=== PATIENT | male | born 1955 | race Caucasian/White ===

== ENCOUNTER 2018-10-02 11:54 | Emergency (ER) | payer OTHER, SELFPAY ==
[2018-10-02 11:55] VITALS: BP 148/87; PULSE 97; RESP 16; TEMP 36.9; O2SAT 98; BMI 22.6
[2018-10-02 12:50] LABS: Anion Gap 3 (5-15); BUN 15 mg/dL (7-18); BUN/Creat Ratio 19.4 RATIO (10-20); Calcium,Total 8.7 mg/dL (8.5-10.1); Chloride 105 mmol/L (98-107); Creatinine, Serum 0.77 mg/dL (0.70-1.30); EST Glomerular Filtration Rate 108 mL/min (>60); Est Glom Filt Rate - Afr Amer 131 mL/min (>60); Estimated Creatinine Clearance 106.22 ml/min; Glucose 86 mg/dL (74-106); Potassium 3.8 mmol/L (3.5-5.1); Sodium Level 134 mmol/L (136-145)
[2018-10-02 12:52] LABS: Absolute Lymphocyte Count 0.95 X10^3/ul (0.83-4.51); Absolute Neutrophil Count 3.4 X10^3/uL (2.0-7.7); Basophil# 0.02 X10^3/uL; Basophil% 0.4 % (0-1); Eosinophil# 0.11 X10^3/uL; Eosinophils% 2.1 % (0-5); Hematocrit 42.2 % (40-54); Hemoglobin 14.2 g/dl (13.0-16.5); Lymphocyte # 0.95 X10^3/ul (4.0); Lymphocyte % 18.3 % (19-41); Mean Corp Hgb Conc 33.6 g/gl (32-36); Mean Corpuscular Hgb 31.8 pg (27.0-32.0); Mean Corpuscular Volume 94.6 fL (80-94); Mean Platelet Vol. 11.3 fl (6.2-12.0); Monocyte# 0.74 X10^3/uL; Monocyte% 14.3 % (0-10); Neutrophil # 3.36 X10^3/uL (2.7-7.7); Neutrophil % 64.9 % (47-70); Platelet Count 133 K/mm3 (150-450); RBC Distribution Width CV 12.5 % (11.6-14.6); RBC Distribution Width SD 42.5 fl (35.1-43.9); Red Blood Count 4.46 M/mm3 (4.6-6.2); White Blood Count 5.2 K/mm3 (4.4-11.0)
[2018-10-02 13:04] LABS: POSITIVE COUNT NO; POSITIVE DIFFERENTIAL NO; POSITIVE MORPHOLOGY NO
--- NOTE | 2018-10-02 13:42 | ED.VISSUMM ---
- ER Visit Summary Date of Service: 10/02/18 Chief Complaint: Left elbow pain and swelling History of Present Illness: The patient is a 63 M who was doing yard work outside last weekend. On Saturday he noted swelling to his left elbow and abrasion of the extensor portion of the elbow. He was seen by his PCP 2 days ago and started on Augmentin for an infection. He went to urgent care today with worsening symptoms and was sent to the emergency room. Patient had no fever or chills. He is able to flex and extend the arm without difficulty. Physical Examination: Vital signs unremarkable. Patient sitting upright in bed no acute distress. Left upper extremity examination was edema of the olecranon bursa. Left elbow has a scabbed abrasion. There is mild edema on the proximal extensor forearm. There is minimal erythema. He has full range of motion but difficulty with strong distal pulses. Test Results: CBC and chemistry studies are unremarkable. Emergency Department Course and Treatment: Patient is given a dose of IV clindamycin. 20-gauge needle was used to aspirate the olecranon bursa. There was no area of cellulitis at the area of needle entry. 5 cc of yellow bursal fluid were withdrawn. No purulent material. Pressure dressing is applied to help prevent the fluid from reaccumulating. Patient will be switched to clindamycin. Treatment Plan: [] Disposition: Discharge Impression: Olecranon bursitis This note was generated with [employer] dictation software. It may contain incorrect words, spelling, and punctuation that were not noted in review of the chart prior to signing ED Disposition - Plan for ED Patient: Disposition: Home or Assisted Living Instructions: ED Bursitis Elbow Olecranon Prescriptions: Clindamycin [Cleocin] 300 mg PO 4X/DAY #80 capsule Referrals: Gaetano Jose [Primary Care Provider] - 1 Week
[2018-10-02 14:20] VITALS: BP 151/78; PULSE 91; RESP 14; O2SAT 99
== END 2018-10-02 14:21 | disposition home or self-care (01) ==
PROVIDERS: Emergency Provider Emergency Medicine; Family Provider Family Medicine; PCP Family Medicine
DX: M70.22 Olecranon bursitis, left elbow (principal); S50.312A Abrasion of left elbow, initial encounter; X58.XXXA Exposure to other specified factors, initial encounter; Y93.9 Activity, unspecified; Y92.9 Unspecified place or not applicable; M19.90 Unspecified osteoarthritis, unspecified site
CPT/HCPCS: 20605; 20610; 80048; 85025; 96365; 96366; 99283; A4216

== ENCOUNTER → 2021-12-15 | Outpatient (CLI) | payer BC, SELFPAY ==
[2021-12-15 09:58] LABS: Absolute Lymphocyte Count 0.76 X10^3/uL (0.83-4.51); Absolute Neutrophil Count 3.9 X10^3/uL (2.0-7.7); Basophil# 0.04 X10^3/uL; Basophil% 0.7 % (0-1); Eosinophils% 3.5 % (0-5); Hematocrit 38.4 % (40-54); Hemoglobin 12.7 g/dL (13.0-16.5); Lymphocyte # 0.76 X10^3/ul (0.83-4.51); Lymphocyte % 13.3 % (19-41); Mean Corp Hgb Conc 33.1 g/dL (32-36); Mean Corpuscular Hgb 32.1 pg (27.0-32.0); Mean Platelet Vol. 10.4 fl (6.2-12.0); Monocyte# 0.84 X10^3/uL; Monocyte% 14.7 % (0-10); NRBC Flagged by Analyzer 0 % (0-5); Neutrophil # 3.86 X10^3/uL (2.7-7.7); Neutrophil % 67.5 % (47-70); Platelet Count 172 K/mm3 (150-450); RBC Distribution Width CV 12.5 % (11.6-14.6); RBC Distribution Width SD 44.6 fl (35.1-43.9); Red Blood Count 3.96 M/mm3 (4.6-6.2); White Blood Count 5.7 K/mm3 (4.4-11.0)
[2021-12-15 10:58] LABS: ALB/GLOB Ratio 0.9 RATIO (0.9-2.4); AST(SGOT) 21 U/L (15-37); Alanine Aminotransfer ALT/SGPT 36 U/L (16-61); Albumin, Serum 3.7 g/dL (3.2-5.0); Alkaline Phosphatase 78 U/L (45-117); Anion Gap 5 (5-15); BUN 12 mg/dL (7-18); BUN/Creat Ratio 13.7 RATIO (10-20); Calcium,Total 8.8 mg/dL (8.5-10.1); Chloride 101 mmol/L (98-107); Cholesterol 142 mg/dL (200); Creatinine, Serum 0.87 mg/dL (0.70-1.30); EST Glomerular Filtration Rate 93 mL/min (>60); Est Glom Filt Rate - Afr Amer 113 mL/min (>60); Globulin 4.1 g/dL (2.2-4.2); Glucose 107 mg/dL (74-106); High Density Lipoprotein 79 mg/dL; PSA,Total - Annual Screen 0.98 ng/mL (0.00-4.00); Potassium 4.5 mmol/L (3.5-5.1); Protein, Total 7.8 g/dL (6.4-8.2); Sodium Level 134 mmol/L (136-145); Thyroid Stim Hormone (TSH) 1.15 uIU/mL (0.358-3.74); Triglycerides 27 mg/dL; Very Low Density Lipoprotein 5 mg/dL (5-40)
== END | disposition home or self-care (01) ==
LOC: LAB 09:36
PROVIDERS: PCP Family Medicine; Visit Provider Internal Medicine
DX: I10 Essential (primary) hypertension (principal); E78.00 Pure hypercholesterolemia, unspecified; E55.9 Vitamin D deficiency, unspecified; Z12.5 Encounter for screening for malignant neoplasm of prostate
CPT/HCPCS: 36415; 80053; 80061; 82306; 84153; 84443; 85025; G0103

== ENCOUNTER → 2021-12-22 | Outpatient (CLI) | payer MEDICARE, SELFPAY ==
[2021-12-22 09:57] LABS: Iron 73 ug/dL (65-175); Iron Binding Capacity,Total 297 ug/dL (250-450); PERCENT IRON SATURATION 24.6 % (15.0-55.0)
[2021-12-22 10:17] LABS: Vitamin B12 319 pg/mL (211-911)
== END | disposition home or self-care (01) ==
LOC: LAB 08:45
PROVIDERS: PCP Internal Medicine; Visit Provider Internal Medicine
DX: D64.9 Anemia, unspecified (principal)
CPT/HCPCS: 36415; 82607; 82746; 83540; 83550

== ENCOUNTER → 2022-01-05 | Outpatient (CLI) | payer MEDICARE, SELFPAY | END | disposition home or self-care (01) | LOC: LABSPEC 08:30 | PROVIDERS: PCP Internal Medicine; Referring Provider Internal Medicine; Visit Provider Internal Medicine | DX: D64.9 Anemia, unspecified (principal) | CPT/HCPCS: 82274 ==

== ENCOUNTER 2022-02-06 05:48 | Day surgery (SDC) | payer MEDICARE, SELFPAY ==
[2022-02-06] VITALS (18 sets, daily range): BP systolic 120–194; BP diastolic 52–104; PULSE 42–58; RESP 5–16; TEMP 36–36.9; O2SAT 91–100; BMI 23.9
--- NOTE | 2022-02-06 06:07 | HP.PCM_ITS ---
History and Physical Date of Admission: 02/06/22 Intake Visit Reasons:?SEBACEOUS CYST LEFT UPPER BACK/CSCOPE Chief Complaint: colonoscopy consult [facility] Director Required: No Is patient in pain?: No Allergies No Known Allergies Allergy (Verified 12/22/21 07:58) Medications apixaban 5 mg tablet 5 mg PO BID 12/06/21 [History Confirmed 12/22/21] atorvastatin 40 mg tablet 40 mg PO DAILY 12/06/21 [History Confirmed 12/22/21] clopidogrel 75 mg tablet 75 mg PO DAILY 12/06/21 [History Confirmed 12/22/21] losartan 25 mg tablet 25 mg PO DAILY 12/06/21 [History Confirmed 12/22/21] metoprolol tartrate 100 mg tablet (Lopressor) 100 mg PO BID 12/06/21 [History Confirmed 12/22/21] PFSH Medical History? Arthritis Heart murmur High blood pressure High cholesterol Surgical History? H/O heart artery stent History of hip replacement History of surgery on arm Family History? Mother Heart diseaseFather ArthritisSister Arthritis Social History? Smoking Status:? Never smoker alcohol intake:? current details:? few beers daily what type of physical activity do you participate in:? walking frequency:? daily HPI HPI HPI: KIMANI MOCTEZUMA, is a 66 M who presents to the office today for surgical consultation regarding a left upper back sebaceous cyst.? The patient is referred by Dr. Fiona Lemon and a written copy my surgical consult recommendations will return to him.? By report there is intermittently gets inflamed.? The patient also has not had a screening colonoscopy. He states that he had some hemorrhoid problem for the first time just a week or so ago.? It was after a bout of diarrhea change in bowel habit.? No bright red blood per rectum or melena.? No abdominal pain. He is not aware of any family history of colon polyps or colon cancer He states he had a stress test last week and did well with that.? No history of DVT. He plans to go out to [facility] to [facility].? He will be gone later the month of December. ROS General General: No weight change, appetite, fatigue, colon cancer, breast cancer or weakness HEENT HEENT: No difficulty swallowing, eye injury, eye surgery, swollen glands or hoarseness Endo Endocrine: No thyroid disease, diabetes mellitus, thyroid cancer, Hair loss, heat intolerance or cold intolerance Skin Skin: No rash or changing moles Breast Breast: No left breast lump, right breast lump, nipple discharge, breast pain, a bnormal mammogram, abnormal US or breast enlargement Musc Musculoskeletal: Yes arthritis; No back problems, rheumatoid arthritis, gout or joint pain Cardio Cardiovascular: Yes murmur, atrial fibrillation, high blood pressure, heart attack and heart stent; No pacemaker, heart disease, palpitations, shortness of breat with exertion or chest pain Psych Psychiatric: No depression, anxiety or hearing voices Resp Respiratory: No shortness of breath, Yes sleep apnea, No cough, No COPD, No asthma, No emphysema and No wheezing Gastro Gastrointestinal: No abdominal pain, No nausea or vomiting, Yes diarrhea, Yes constipation, No blood in stool, No acid reflux, Yes hemorrhoids, No ulcers, No gallbladder problem and No black,tarry stools Stepan Hematologic: Yes blood thinners, No blood disorders, No bleeding, No anemia and No blood clots Neuro Neurologic: No system reviewed and no additional complaints, except as documented, No as per HPI, No abnormal gait, No abnormal hearing, No abnormal movements, No abnormal speech, No behavioral changes, No burning sensations, No confusion, No convulsions, No disequilibrium, No dizziness, No localized weakness, No frequent falls, No headache(s), No lack of coordination, No loss of vision, No memory loss, No numbness, No other visual disturbances, No radicular pain, No restless legs, No sensory deficit, No syncope, No tingling, No tremor(s), No weakness and No other Exam Const General: cooperative, healthy appearing, comfortable and no acute distress [facility] Head: normal to inspection Eyes General: appearance normal, both eyes and all related structures Neck Neck: normal visual inspection Chest Chest palpation & inspection: normal inspection of the chest Resp Effort & Inspection: normal respiratory effort Auscultation: clear to auscultation bilaterally Cardio Rate: regular rate Rhythm: regular rhythm GI Palpation: soft and no hepatosplenomegaly Auscultation: normal bowel sounds Musc Cervical Spine: normal cervical lordosis Skin General: no rashes or lesions noted Other: Left upper posterior shoulder 1.5 cm diameter subdermal nodule Extrem General: no calf tenderness Psych Appearance: grossly normal Assessment and Plan Assessment and Plan (1) Sebaceous cyst: ?Status:?Acute (2) Screening for intestinal cancer: ?Status:?Acute Plan Left posterior shoulder sebaceous cyst.? Currently noninflamed but history of inflammation and drainage.? I recommend in office complete excisional removal.? He is aware of technique, benefit, risk, alternatives.? We would want to schedule that for when he will not be leaving on his vacation. Recommend a screening colonoscopy with possible biopsy or polypectomy as indicated.? He has never had a previous screening exam.? Recent temporary bout of diarrhea but that seems to have resolved.? No acute symptoms.? He is aware of the technique, benefit, risk and alternatives.? We will also schedule procedure at his discretion. Appreciate the opportunity assisting with the surgical care Copy: Dr. Fiona Rubio M.D., F.A.C.S I have re-examined the patient. There are no clinical changes since date of exam. Teodoro Rubio M.D., F.A.C.S.
[2022-02-06] MEDS: Lactated Ringers 1,000 ML 15 ML IV ×2 (06:25→07:53)
[2022-02-06] MEDS: Midazolam 5 MG/ML Syringe (07:10)
[2022-02-06] MEDS: DiphenhydrAMINE 50 MG/ML Syringe (07:17)
--- NOTE | 2022-02-06 07:40 | OP.COLON_ITS ---
Patient Name: Prasanna Palm Procedure Date: 02/06/2022 7:05 AM Date of : 1955 Age: 66 Procedure: Colonoscopy Indications: Screening for colorectal malignant neoplasm Providers: Teodoro Rubio MD Medicines: Midazolam 5 mg IV, Meperidine 100 mg IV, Diphenhydramine 25 mg IV Patient Profile: Last Colonoscopy: none. The patient's first colonoscopy is today. Complications: No immediate complications. Procedure: Pre-Anesthesia Assessment: - Prior to the procedure, a History and Physical was performed, and patient medications and allergies were reviewed. The patient's tolerance of previous anesthesia was also reviewed. The risks and benefits of the procedure and the sedation options and risks were discussed with the patient. All questions were answered, and informed consent was obtained. Prior Anticoagulants: The patient has taken no previous anticoagulant or antiplatelet agents. ASA Grade Assessment: II - A patient with mild systemic disease. After reviewing the risks and benefits, the patient was deemed in satisfactory condition to undergo the procedure. After I obtained informed consent, the scope was passed under direct vision. Throughout the procedure, the patient's blood pressure, pulse, and oxygen saturations were monitored continuously. The adult colonoscope was introduced through the anus and advanced to the cecum, identified by appendiceal orifice and ileocecal valve. The colonoscopy was technically difficult and complex due to a redundant colon. Successful completion of the procedure was aided by increasing the dose of sedation medication. The patient tolerated the procedure well. The quality of the bowel preparation was good. The ileocecal valve and the appendiceal orifice were photographed. Moderate Sedation: Moderate (conscious) sedation was personally administered by the endoscopist. The following parameters were monitored: oxygen saturation, heart rate, blood pressure, and response to care. Total physician intraservice time was 18 minutes. Scope In: 7:12:58 AM Scope Withdrawal Time 0 hours 7 minutes 16 seconds Scope Out: 7:35:36 AM Total Procedure Duration Time 0 hours 22 minutes 38 seconds Findings: The digital rectal exam findings include non-thrombosed internal hemorrhoids and internal hemorrhoids that prolapse with straining, but spontaneously regress to the resting position (Grade II). Pertinent negatives include normal prostate (size, shape, and consistency). A few diverticula were found in the entire colon. The left colon and right colon were moderately tortuous. Advancing the scope required changing the patient to a supine position and using manual pressure. The exam was otherwise without abnormality. Impression: - Non-thrombosed internal hemorrhoids and internal hemorrhoids that prolapse with straining, but spontaneously regress to the resting position (Grade II) found on digital rectal exam. - Diverticulosis in the entire examined colon. - Tortuous colon. - The examination was otherwise normal. - No specimens collected. Recommendation: - Discharge patient to home. - Resume previous diet. - Continue present medications. - Repeat colonoscopy in 10 years for screening purposes. Procedure Code(s): --- Professional --- 46274, Colonoscopy, flexible; diagnostic, including collection of specimen(s) by brushing or washing, when performed (separate procedure) 68300, 59, Moderate sedation services provided by the same physician or other qualified health daycare teacher performing the diagnostic or therapeutic service that the sedation supports, requiring the presence of an independent trained observer to assist in the monitoring of the patient's level of consciousness and physiological status; initial 15 minutes of intraservice time, patient age 5 years or older Diagnosis Code(s): --- Professional --- Z12.11, Encounter for screening for malignant neoplasm of colon K64.1, Second degree hemorrhoids K57.30, Diverticulosis of large intestine without perforation or abscess without bleeding Q43.8, Other specified congenital malformations of intestine CPT copyright 2017 [employer]. All rights reserved. The codes documented in this report are preliminary and upon set up mechanic crown assembly machine review may be revised to meet current compliance requirements. Teodoro Rubio MD 02/06/2022 7:40:14 AM This report has been signed electronically. Number of Addenda: 0 Note Initiated On: 02/06/2022 7:05 AM
--- NOTE | 2022-02-06 07:41 | OP.CCLET_ITS ---
02/06/2022 Fiona Lemon [facility] [address] [place] [address] Re : Colonoscopy procedure for Prasanna Palm Dear Dr. Lemon This procedure was performed on Sunday, February 06, 2022. My impressions and recommendations are as follows: Impressions : - Non-thrombosed internal hemorrhoids and internal hemorrhoids that prolapse with straining, but spontaneously regress to the resting position (Grade II) found on digital rectal exam. - Diverticulosis in the entire examined colon. - Tortuous colon. - The examination was otherwise normal. - No specimens collected. Recommendations : - Discharge patient to home. - Resume previous diet. - Continue present medications. - Repeat colonoscopy in 10 years for screening purposes. My findings are described in the full procedure note, which is enclosed. If I can be of further assistance, please feel free to contact me at Doctor phone number(s): Work: . Sincerely, Teodoro Rubio MD 02/06/2022 7:40:14 AM This report has been signed electronically.
== END 2022-02-06 09:17 | disposition home or self-care (01) ==
LOC: EN 05:50 → AC 05:52
PROVIDERS: PCP Internal Medicine; Referring Provider Internal Medicine; Visit Provider Surgery
PROC: 0DJD8ZZ Inspection of Lower Intestinal Tract, Via Natural or Artificial Opening Endoscopic (ICD-10-PCS; CPT 45378; principal; 2022-02-06 06:55)
DX: Z12.11 Encounter for screening for malignant neoplasm of colon (principal); E78.00 Pure hypercholesterolemia, unspecified; Z79.899 Other long term (current) drug therapy; K64.1 Second degree hemorrhoids; K57.30 Diverticulosis of large intestine without perforation or abscess without bleeding; Q43.8 Other specified congenital malformations of intestine
CPT/HCPCS: G0121; 99152; 99153; J7120

== ENCOUNTER → 2023-06-18 | Outpatient (CLI) | payer MEDICARE, SELFPAY ==
[2023-06-18 10:08] LABS: Absolute Lymphocyte Count 1.07 X10^3/uL (0.83-4.51); Absolute Neutrophil Count 2.3 X10^3/uL (2.0-7.7); Basophil# 0.04 X10^3/uL; Basophil% 0.9 % (0-1); Eosinophil# 0.19 X10^3/uL; Eosinophils% 4.4 % (0-5); Hematocrit 38.6 % (40-54); Hemoglobin 12.7 g/dL (13.0-16.5); Lymphocyte # 1.07 X10^3/ul (0.83-4.51); Lymphocyte % 24.6 % (19-41); Mean Corp Hgb Conc 32.9 g/dL (32-36); Mean Corpuscular Hgb 31.4 pg (27.0-32.0); Mean Corpuscular Volume 95.3 fL (80-94); Mean Platelet Vol. 10.8 fl (6.2-12.0); Monocyte# 0.79 X10^3/uL; Monocyte% 18.2 % (0-10); NRBC Flagged by Analyzer 0 % (0-5); Neutrophil # 2.25 X10^3/uL (2.7-7.7); Neutrophil % 51.7 % (47-70); Platelet Count 184 K/mm3 (150-450); RBC Distribution Width CV 12.5 % (11.6-14.6); RBC Distribution Width SD 43.8 fl (35.1-43.9); Red Blood Count 4.05 M/mm3 (4.6-6.2); White Blood Count 4.4 K/mm3 (4.4-11.0)
[2023-06-18 11:20] LABS: AST(SGOT) 34 U/L (15-37); Alanine Aminotransfer ALT/SGPT 37 U/L (16-61); Albumin, Serum 3.9 g/dL (3.2-5.0); Alkaline Phosphatase 84 U/L (45-117); Anion Gap 3 (5-15); BUN 12 mg/dL (7-18); BUN/Creat Ratio 13.5 RATIO (10-20); Bilirubin, Direct 0.38 mg/dL (0.00-0.30); Calcium,Total 9.4 mg/dL (8.5-10.1); Chloride 102 mmol/L (98-107); Cholesterol 128 mg/dL (200); Creatinine, Serum 0.89 mg/dL (0.70-1.30); EST Glomerular Filtration Rate 91 mL/min (>60); Est Glom Filt Rate - Afr Amer 110 mL/min (>60); Globulin 4.2 g/dL (2.2-4.2); Glucose 105 mg/dL (74-106); High Density Lipoprotein 84 mg/dL; Potassium 4.2 mmol/L (3.5-5.1); Protein, Total 8.1 g/dL (6.4-8.2); Sodium Level 130 mmol/L (136-145); Thyroid Stim Hormone (TSH) 1.68 uIU/mL (0.358-3.74); Triglycerides 31 mg/dL; Very Low Density Lipoprotein 6 mg/dL (5-40)
== END | disposition home or self-care (01) ==
LOC: LAB 09:35
PROVIDERS: PCP Internal Medicine; Referring Provider Nurse Practitioner Gerontology; Visit Provider Nurse Practitioner Gerontology
DX: R53.83 Other fatigue (principal); E78.5 Hyperlipidemia, unspecified; E55.9 Vitamin D deficiency, unspecified
CPT/HCPCS: 36415; 80048; 80061; 80076; 82306; 84443; 85025

== ENCOUNTER → 2023-07-22 | Outpatient (CLI) | payer MEDICARE, SELFPAY ==
--- NOTE | 2023-07-22 10:46 | ECHOD_ITS ---
Reason For Study: Aortic Insufficiency, CAD Procedure This was a 2D Doppler, Color Flow transthoracic echocardiogram. Exam performed in department. Left Ventricle Normal LV size. Mild concentric left ventricular hypertrophy. The estimated ejection fraction is 60 %. Stage 2 diastolic dysfunction. No regional wall motion abnormalities noted. Right Ventricle Normal RV size. Normal systolic function. Atria Normal left atrium. Normal right atrium. Mitral Valve Bileaflet diffuse mitral valve thickening. Mild (1+) eccentric mitral valve insufficiency. Tricuspid Valve Normal tricuspid valve. Mild tricuspid valve insufficiency. Pulmonary artery systolic pressure is 30 mmHg. Aortic Valve Normal aortic valve. Trisinus/trileaflet aortic valve. Mild (1+) aortic valve insufficiency. Pulmonic Valve Normal pulmonic valve. Great Vessels Normal aortic root. The pulmonary artery is normal size. Normal inferior vena cava. Pericardium/Pleural No pericardial effusion. MMode/2D Measurements & Calculations LVIDd: 4.7 cm IVSd: 1.2 cm Ao root diam: 3.1 cm LVIDs: 3.3 cm LVPWd: 1.2 cm RVDd: 3.5 cm FS: 28.9 % LAV(MOD-bp): 56.3 ml LVAd ap4: 30.0 cm2 LVAd ap2: 34.0 cm2 LAV(MOD-bp) Indexed: 27.7 ml/m2 LVLd ap4: 8.2 cm LVLd ap2: 8.9 cm LAV(MOD-sp2): 48.2 ml EDV(MOD-sp4): 89.3 ml EDV(MOD-sp2): 110.1 ml LAV(MOD-sp4): 57.8 ml EDV(sp4-el): 92.7 ml EDV(sp2-el): 110.2 ml LVAs ap4: 16.0 cm2 LVAs ap2: 18.8 cm2 LVLs ap4: 6.8 cm LVLs ap2: 7.5 cm ESV(MOD-sp4): 32.1 ml ESV(MOD-sp2): 39.9 ml ESV(sp4-el): 31.9 ml ESV(sp2-el): 40.0 ml EF(MOD-sp4): 64.1 % EF(MOD-sp2): 63.7 % EF(sp4-el): 65.6 % SV(MOD-sp4): 57.3 ml SV(MOD-sp2): 70.2 ml SV(sp4-el): 60.9 ml LA dimension(2D): 4.0 cm LA A4 area: 18.8 cm2 RA A4 area: 13.9 cm2 TAPSE: 2.1 cm Time Measurements MV dec time: 0.20 sec Doppler Measurements & Calculations MV E max manuelito: 77.9 cm/sec Lat Peak E' Manuelito: 14.3 cm/sec Med Peak E' Manuelito: 6.5 cm/sec MV A max manuelito: 54.6 cm/sec E/E' lat: 5.4 E/E' med: 12.0 MV E/A: 1.4 MV dec slope: 392.1 cm/sec2 Ao V2 max: 136.4 cm/sec LV V1 max: 94.7 cm/sec Ao max P.4 mmHg LV V1 max P.6 mmHg Ao V2 mean: 93.1 cm/sec LV V1 mean P.8 mmHg Ao mean P.0 mmHg LV V1 mean: 61.8 cm/sec Ao V2 VTI: 35.1 cm LV V1 VTI: 22.8 cm AV (velocity ratio): 0.65 PA V2 max: 94.0 cm/sec TR max manuelito: 259.0 cm/sec TR max P.8 mmHg ECHO/Echo Complete Interpretation Summary Normal LV size. Mild concentric left ventricular hypertrophy. The estimated ejection fraction is 60 %. Stage 2 diastolic dysfunction. Mild (1+) eccentric mitral valve insufficiency. Mild (1+) aortic valve insufficiency. Ordering Physician: Missy Dexter Referring Physician: Fiona Lemon M.D. Performed By: Kristi Bee RDCS
[2023-07-22 14:49] LABS: Anion Gap 5 (5-15); BUN 12 mg/dL (7-18); BUN/Creat Ratio 12.6 RATIO (10-20); Calcium,Total 8.5 mg/dL (8.5-10.1); Chloride 105 mmol/L (98-107); Creatinine, Serum 0.96 mg/dL (0.70-1.30); EST Glomerular Filtration Rate 84 mL/min (>60); Est Glom Filt Rate - Afr Amer 101 mL/min (>60); Glucose 104 mg/dL (74-106); Potassium 4.5 mmol/L (3.5-5.1); Sodium Level 136 mmol/L (136-145)
== END | disposition home or self-care (01) ==
PROVIDERS: PCP Internal Medicine; Referring Provider Nurse Practitioner Gerontology; Visit Provider Nurse Practitioner Gerontology
DX: I35.1 Nonrheumatic aortic (valve) insufficiency (principal); I10 Essential (primary) hypertension; Z79.899 Other long term (current) drug therapy
CPT/HCPCS: 36415; 80048; 93306

== ENCOUNTER 2023-10-17 15:05 | Observation (INO) | payer MEDICARE, SELFPAY ==
--- NOTE | 2023-10-02 07:35 | EKG12_ITS ---
Test Reason : PREOP Blood Pressure : / mmHG Vent. Rate : 061 BPM Atrial Rate : 061 BPM P-R Int : 160 ms QRS Dur : 092 ms QT Int : 384 ms P-R-T Axes : 033 066 055 degrees QTc Int : 386 ms Normal sinus rhythm Normal ECG Confirmed by Kris Lowery ([id number]), film and video editor GEOVANNI DAVIS ([id number]) on 10/02/2023 12:52:58 PM Referred By: Ta He Confirmed By:Kris Lowery
[2023-10-02 08:36] LABS: Absolute Lymphocyte Count 1.21 X10^3/uL (0.83-4.51); Basophil# 0.05 X10^3/uL; Basophil% 1.1 % (0-1); Eosinophils% 9.2 % (0-5); Hematocrit 39.9 % (40-54); Hemoglobin 13.2 g/dL (13.0-16.5); Lymphocyte # 1.21 X10^3/ul (0.83-4.51); Lymphocyte % 27.7 % (19-41); Mean Corp Hgb Conc 33.1 g/dL (32-36); Mean Corpuscular Volume 96.6 fL (80-94); Mean Platelet Vol. 10.9 fl (6.2-12.0); Monocyte# 0.66 X10^3/uL; Monocyte% 15.1 % (0-10); NRBC Flagged by Analyzer 0 % (0-5); Neutrophil # 2.03 X10^3/uL (2.7-7.7); Neutrophil % 46.4 % (47-70); Platelet Count 210 K/mm3 (150-450); RBC Distribution Width CV 12.8 % (11.6-14.6); RBC Distribution Width SD 45.7 fl (35.1-43.9); Red Blood Count 4.13 M/mm3 (4.6-6.2); White Blood Count 4.4 K/mm3 (4.4-11.0)
[2023-10-02 08:57] LABS: Magnesium 2.1 mg/dL (1.6-2.6)
[2023-10-02 09:12] LABS: Albumin, Serum 3.8 g/dL (3.2-5.0); Anion Gap 6 (5-15); BUN 15 mg/dL (7-18); Calcium,Total 9.4 mg/dL (8.5-10.1); Chloride 103 mmol/L (98-107); EST Glomerular Filtration Rate 79 mL/min (>60); Est Glom Filt Rate - Afr Amer 96 mL/min (>60); Glucose 121 mg/dL (74-106); Potassium 4.8 mmol/L (3.5-5.1); Sodium Level 133 mmol/L (136-145)
[2023-10-17] VITALS (33 sets, daily range): BP systolic 106–158; BP diastolic 52–86; PULSE 49–86; RESP 6–18; TEMP 36.1–36.7; O2SAT 95–100; BMI 22.8
--- NOTE | 2023-10-17 | HIP_PTH ---
PATIENT: KIMANI MOCTEZUMA LOC: MS3 U#:[id number] AGE/SX: 68/M ROOM: [facility] [place]17/[address]: Dr. Ta He DO : 1955 BED: 1 DIS: 10/18/2023 SPEC #: [id number] RECD: 10/17/23 10:02 STATUS: CONTRERAS RAMANDEEP #: [id number] COLLIN: 10/17/23 00:[address]: Ta He DEPT: SURGICAL PATHOLOGY RECD BY: Lauren Traylor ENTERED: 10/17/23 13:22 SP TYPE: TOTAL HIP OTHR DR: Dr. Fiona Lemon MD Tissues: Hip, NOS Procedures: Decalcification bone/plaque Surgery Specimen Level IV HEADER OPERATION: ERAS, total hip replacement PRE-OP DIAGNOSIS: Grade 4 primary osteoarthritis, right hip TISSUE SUBMITTED: Bone and soft tissue right hip MICROSCOPIC DIAGNOSIS Bone and tissue of right hip, total hip resection: Severe degenerative joint disease. Mild synovial hyperplasia. AM: 10/23/2023 MICROSCOPIC DESCRIPTION Slides are reviewed. GROSS DESCRIPTION Received is one container labeled with the patient's name and designated bone and soft tissue right hip. The specimen consists of a arriaza femoral head (with portion of femoral neck). The femoral head measures 5.0 x 5.0 x 5.0 cm (and the femoral neck measures 0.5 to 2.5 cm in length.) The articular surface displays prominent osteophyte formation, eburnation and bone erosion. Also present in the specimen container are multiple irregular fragments of bone reamings and pink-yellow soft tissue measuring in aggregate 8.0 x 9.0 x 1.5 cm. A loose body is also present in the container measuring 1.7 x 1.0 x 0.7cm. Access Services Representative sections are submitted in two cassettes as follows: 1 - soft tissue, 2 - bone after decalcification. JERRY/ 10/17/2023 TC:5 CPT: 12503, 50929
[2023-10-17] MEDS: Magnesium 1 GM over 15 mins IV (06:27)
[2023-10-17] MEDS: Lactated Ringers 1,000 ML 15 ML IV (06:27)
[2023-10-17 06:32] LABS: Bedside Glucose 99 mg/dL (74-106)
[2023-10-17] MEDS: Gabapentin 600 MG Tablet PO (06:40)
[2023-10-17] MEDS: Celecoxib 200 MG Capsule 400 MG PO (06:41)
[2023-10-17] MEDS: Acetaminophen 500 MG Tablet 1000 MG PO ×2 (06:41→20:14)
[2023-10-17] MEDS: Cefazolin 2 GM in 0.9% Normal Saline (100mL Bag) 100 ML IV (07:25)
[2023-10-17] MEDS: dexAMETHasone 10 MG/ML Vial IV (07:40)
[2023-10-17] MEDS: JPS (Morphine 10mg/ml) OPERA.SITE (08:23)
[2023-10-17] MEDS: TRANEXAMIC ACID 2,000 MG, 0.9% Normal Saline (100mL Bag) 100 ML OPERA.SITE (09:05)
--- NOTE | 2023-10-17 09:13 | PRE.ANES_ITS ---
ASA Classification* ASA Classification ASA Classification: 3 Assessment & Plan Anesthesia* Anesthesia Assessment Anesthesia Assessment: Discussed sedation and/or anesthesia options, risks, benefits, and alternatives with patient/parents/legal guardian. Questions invited. The patient/parents/legal guardian/POA seems to understand and agrees to proceed with anesthesia plan. Reviewed the physical assessment, medical history, allergy history and patient home medications list prior to surgery/procedure/anesthetic and documented any changes. Performed airway and anesthesia risk assessments. 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 When Was Last Pacemaker Check QUESTION #4 FULL TEXT: You/Your Family Experience fever (hyperthermia) with Anesthesia Last Oral Intake Last Oral intake: NPO since 19:30 Meds taken in AM with sips of Yes water? Meds patient instructed to losartan, metoprolol, amlodipine take am of surgery Any additional information?: Yes PONV PONV - pipe out worker: PONV - pipe out worker Female No 09/23/23 08:32 HX of Motion Sickness No 09/23/23 08:32 HX of N/V After Surgery No 09/23/23 08:32 Non-Smoker Yes 09/23/23 08:32 Duration of Surgery greater Yes 09/23/23 08:32 than 60 minutes Number of Risk Factors 2 09/23/23 08:32 PONV Score Moderate Risk 09/23/23 08:32 Height & Weight Height & Weight: Anesthesia: Height & Weight Height 1.83 m 10/17/23 06:30 Weight: 76.6 kg 10/17/23 06:30 Body Mass Index (BMI) 22.8 10/17/23 06:30 Respiratory Assessment Respiratory Assessment - pipe out worker: Respiratory Tract Infection Hx - pipe out worker Hx Respiratory Tract Infection No 09/23/23 08:32 STOP Sleep Apnea STOP Sleep Apnea - pipe out worker: STOP Sleep Apnea - pipe out worker Hx Hypertension Yes: CONTROLLED WITH MED 09/23/23 08:32 Hx Sleep Apnea No 09/23/23 08:32 CPAP BIPAP Do you snore loudly (louder Yes 09/23/23 08:32 than talking or can be heard Do you often feel tired/ No 09/23/23 08:32 fatigued/ sleepy during daytime? Has anyone observed you stop No 09/23/23 08:32 breathing during sleep? STOP Results Positive 09/23/23 08:32 QUESTION #5 FULL TEXT : Do you snore loudly (louder than talking or can be heard through closed doors)? 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 Specify any problems Hx of Preganancy in last 3 N/A 09/23/23 08:32 Months Nurse Filling Out Transfusion NBUCHER 09/23/23 08:32 & Questions: Date: 09/23/23 09/23/23 08:32 Time: 08:34 09/23/23 08:32 Patient unable to answer at this time (ie. confused, unrespo /Reproduction History /Reproductive History - pipe out worker: /Reproductive Hx- pipe out worker Hx Now No 09/23/23 08:32 Gestational Age (in weeks): EDC: Hx Hx Para Hx Section SAB No 09/23/23 08:32 Active Medications Active Medications: Current Medications Generic Name Dose Route Start Last Admin Trade Name Freq PRN Reason Stop Dose Admin Acetaminophen 1,000 mg 10/17/23 10:20 10/17/23 06:41 Acetaminophen 500 Mg Tablet PO 10/17/23 10:21 1,000 mg X1 ONE Administration Celecoxib 400 mg 10/17/23 10:20 10/17/23 06:41 Celecoxib 200 Mg Capsule PO 10/17/23 10:21 400 mg X1 ONE Administration Tranexamic Acid 2,000 mg/ 0 mg 10/17/23 10:20 10/17/23 09:05 Sodium Chloride 100 ml OPERA.SITE 10/17/23 10:21 100 ml X1 ONE Administration Sodium Chloride 77.9 ml/ 0 ml 10/17/23 10:20 10/17/23 08:23 Ropivacaine 200 mg/ OPERA.SITE 10/17/23 10:21 100 injectable Epinephrine HCl 0.6 mg/ X1 ONE Administration Ketorolac Tromethamine 30 mg/ Morphine Sulfate 5 mg Dexamethasone Sodium Phosphate 10 mg 10/17/23 10:20 10/17/23 07:40 Dexamethasone 10 Mg/Ml Vial IV 10/17/23 10:21 10 mg X1 ONE Administration Gabapentin 600 mg 10/17/23 10:20 10/17/23 06:40 Gabapentin 600 Mg Tablet PO 10/17/23 10:21 600 mg X1 ONE Administration Cefazolin Sodium 2 gm/ Sodium 110 mls @ 150 mls/hr 10/17/23 10:20 10/17/23 07:56 Chloride IV 10/17/23 11:03 Infused PREOP ONE Infusion Magnesium Sulfate 1 gm/ 102 mls @ 408 mls/hr 10/17/23 10:20 10/17/23 06:27 Dextrose IV 10/17/23 10:34 408 mls/hr X1 ONE Administration Lactated Ringer's 1,000 mls @ 15 mls/hr 10/17/23 06:00 10/17/23 06:27 IV 15 mls/hr .Q48H FERNANDO Administration Insulin Human Lispro 1 - 6 unit 10/17/23 10:20 Insulin Lispro 100 Unit/Ml Insuln.Pen SC Q4H PRN PRN BG>/= 180, SEE PROTOCOL Protocol Anesthesia Focused Assessment* Temperature: 97.9 F Pulse Rate: 86 Blood Pressure: 130/86 Respiratory Rate: 16 Pulse Ox: 100 Airway Assessment Mouth opens (cm): 3 Mallampati Score: I Focused Labs Anesthesia Preop lab: CBC WBC 7.5 K/mm3 (4.4-11.0) 10/18/23 06:09 RBC 2.69 M/mm3 (4.6-6.2) L 10/18/23 06:09 Hgb 8.6 g/dL (13.0-16.5) L 10/18/23 06:09 Hct 26.4 % (40-54) L 10/18/23 06:09 Plt Count 161 K/mm3 (150-450) 10/18/23 06:09 CHEMISTRY Potassium 4.8 mmol/L (3.5-5.1) 10/02/23 07:38 Sodium 133 mmol/L (136-145) L 10/02/23 07:38 Magnesium 2.1 mg/dL (1.6-2.6) 10/02/23 07:38 BUN 15 mg/dL (7-18) 10/02/23 07:38 Creatinine 1.00 mg/dL (0.70-1.30) 10/02/23 07:38 Glucose 121 mg/dL (74-106) H 10/02/23 07:38 TSH 1.68 uIU/mL (0.358-3.74) 06/18/23 09:42 COAG Review of Systems (Anesthesia) ROS Narrative System reviewed and no additional complaints, except as documented. [facility] Medical History (Updated 09/23/23 @ 08:40 by Lyudmila Zhou) High cholesterol Back pain Heartburn Non-smoker History of echocardiogram History of stress test Cardiology follow-up encounter History of atrial fibrillation Atrial fibrillation with RVR Paroxysmal atrial fibrillation Essential hypertension Hyperlipidemia Atherosclerotic heart disease of [place] coronary artery with unstable angina pectoris Heart murmur Arthritis Home Medications ?Medication ?Instructions ?Recorded ?Last Taken ?Type aspirin 81 mg tablet,delayed 81 mg PO DAILY 08/23/22 10/16/23 History release losartan 50 mg tablet 50 mg PO DAILY This is a dose 07/11/23 10/17/23 Rx increase #90 tabs amlodipine 5 mg tablet 5 mg PO DAILY #30 tabs 07/22/23 10/17/23 Rx apixaban 5 mg tablet 5 mg PO BID #60 tabs 07/30/23 10/16/23 Rx metoprolol tartrate 100 mg tablet 100 mg PO BID #180 tabs 09/06/23 10/17/23 Rx (Lopressor) acetaminophen 500 mg tablet 1,000 mg (2 x 500 mg) PO Q8 30 10/18/23 Unknown Rx days #180 tabs doxycycline hyclate 100 mg tablet 100 mg PO BID 7 days #14 tabs 10/18/23 Unknown Rx Allergy/AdvReac Type Severity Reaction Status Date / Time No Known Allergies Allergy Verified 10/17/23 06:27 Family History Mother Heart disease Father Arthritis Sister Arthritis Surgical History (Updated 10/18/23 @ 06:[address] Ta He, DO) History of cardiac catheterization History of back surgery History of appendectomy History of coronary artery stent placement (06/01/21) History of surgery on arm History of hip replacement Social History Smoking Status: Never smoker alcohol intake: current details: few beers daily substance use type: does not use caffeine: Yes Type: tea Number of servings: 1 what type of physical activity do you participate in: walking frequency: daily
--- NOTE | 2023-10-17 09:28 | RAD_ITS ---
STUDY: X-RAY - PELVIS AND RIGHT HIP REASON FOR EXAM: Male, 68 years old. Post op R JEN -- in PACU TECHNIQUE: 1 views of the pelvis and hip. COMPARISON: Comparison is made with prior study done earlier today. FINDINGS: Stable cephalic subluxation of the prosthetic right hip joint. RAD/Hip Min 2 Views (Portable) IMPRESSION: Stable cephalic subluxation of the prosthetic right hip joint. Electronically Signed: David Franklin MD at 12:35 EDT ,
--- NOTE | 2023-10-17 09:35 | OP.PCM_ITS ---
Report of Operation Description of Surgical Findings:: Preoperative diagnosis: Right hip primary osteoarthritis Postoperative diagnosis: Right hip primary osteoarthritis Procedure: Right total hip arthroplasty Surgeon: Ta He DO Ship Wirer: Fahad Prasad PA-C Anesthesia: General endotracheal Anesthesiologist: Dr. Cabral Complications: None apparent Drains: None Estimated blood loss: 200 cc Urinary output: None recorded IV fluids: 1300 cc crystalloid Specimens: Right femoral head Surgical implants: Gomez Accolade two 132 degree neck angle hip stem size #7, Biolox ceramic V40 femoral head 36 mm outer diameter with +0 mm neck length, Trident II TriTanium cluster hole acetabular shell 56 mm outer diameter with Trident X3 10 degree polyethylene insert 36 mm inner diameter, 6.5 mm low- profile hex screw 6.5 mm x 25 mm Indications: This is an 68-year-old male seen in the outpatient setting for right hip osteoarthritis. He failed nonoperative treatment in form of Tylenol, active modification. Patient is unable to take NSAIDs due to Eliquis. X-rays revealed end-stage right hip osteoarthritis. Right total hip arthroplasty was offered. I reviewed the risks, benefits, alternatives to procedure. Risks included but were not limited to bleeding, infection, loss of life or limb, risk of anesthesia, neurovascular injury, persistent pain, instability, need for additional surgery, failure of orthopedic hardware, loosening, osteolysis, need for assistive devices long-term. Patient expressed understanding wish to proceed with surgery. Description of procedure: Patient was identified in the preoperative holding area the day of surgery by name, medical record number, and date of . The operative extremities marked. All questions were answered to patient satisfaction. The operative extremity was marked. At time of the operative procedure, pt was brought to the operative suite and positioned supine on standard operating table. General anesthesia was induced and endotracheal tube placed. After adequate anesthesia, patient was transferred to a standard operating table. He was then positioned in the lateral decubitus position with the right side up and held in position by [employer]ota hip positioner system. All bony prominences were well-padded. A axillary roll was placed under the patient's left axilla. Peroneal nerve was free with a blanket on the nonoperative extremity. Leg lengths were reproduced. The right lower extremity was then prepped and draped in normal, sterile orthopedic fashion. We performed a timeout with all parties in attendance in agreement with the side, site, and operation to be performed. No concerns were voiced and would like to proceed. 2 g Ancef was administered IV prior to the incision by anesthesia staff. I first marked an incision along the lateral aspect of the hip centered over the greater trochanteric tip. In standard posterior approach, a curvilinear incision was made above the trochanter. An approximately 15 cm incision was made. Skin was sharply incised with a 10 blade scalpel carried deep through subcutaneous layers to the level of the IT band. Gelpi retractors were then placed. A Diaz was used to expose the IT band. Bovie cautery was then used for hemostasis and then to open the IT band. This was opened in line with the incision. A Charnley retractor was then placed. Sciatic nerve was free. The trochanteric bursa was then debrided. This identified the short external rotators after internal rotation of the hip. Short external rotators were taken down and tagged for later repair. Hip capsule was also tagged for repair with a stay suture. The femur was then dislocated. A standard neck cut was made 1 fingerbreadth above the lesser trochanter and the head removed. Anterior and posterior acetabular retractors were placed to gain access to the acetabulum. A self-retaining retractor was placed superiorly. Labrum was excised. Pulvinar was excised. I then medialized with a 50 mm reamer. We sequentially reamed to an outer diameter of 56 mm. This had excellent purchase within the acetabulum and near circumferential bony bleeding was noted after reamer was removed. I selected the 56 mm diameter to be our final outer diameter for the acetabular component. This was impacted to planned trajectory with appropriate anteversion and inclination. There was excellent purchase of the acetabular shell. I placed a single cancellous screw within the acetabular shell in the posterior superior quadrant with excellent cancellous purchase. 10 degree posterior liner was placed and impacted per air traffic coordinator recommendations. I then turned my attention to the femur. Femoral elevator was placed beneath the trochanter. Box chisel was then utilized to gain access to the femoral canal. Canal finder was placed. Sequential broaches were used and press-fit manner. A final size 7 achieved excellent vertical and rotational stability. We then trialed with a standard and subsequently high offset stem. Standard 132 degree offset did achieve excellent stability and reproduction of abductor tension. Leg lengths appeared appropriate with a size 0 mm neck length. Trials were then removed. We copiously irrigated the wound with normal saline solution. A size 7 stem was then impacted with excellent fixation. Final head was then impacted over the Hayes taper neck. Final reduction was performed. 3-minute diluted sterile Betadine soak was then performed in the wound. 1 g topical IV TXA was applied to the wound for 1 minute. The wound was then roldan irrigated with normal saline solution. A posterior capsular repair was performed with #2 Ethibond suture. IT band was closed watertight with #1 strata fix suture. Deeper fascial layers were closed with 0 Vicryl suture in interrupted fashion. Subcutaneous layers were reapproximated with 2-0 Vicryl suture and skin reapproximated with 3-0 subcuticular V-Loc Monocryl and Dermabond. A silver dressing was applied. Patient tolerated procedure well without complication. He was positioned back in the supine position on her hospital bed and subsequently extubated safely. He was transferred to PACU in stable condition. Need for skilled assistant film editor: Fahad Prasad PA-C was critical to the outcome of the case. During the course of the procedure the physician assistant film editor played a vital role. His intimate knowledge of my steps in the procedure aided in safe and expedient completion of the procedure. The PA played a vital role in positioning particularly in obtaining the appropriate positioning. The PA was also vital in the retraction of soft tissues during the exposure and protecting vital structures. The PA was also vital in performing reductions and dislocation of component trials and final implants. He also played a vital role in closure and dressing application with my direct supervision. Upon transfer to PACU, routine x-rays were obtained of the operative hip. An anterior dislocation of the hip was seen. In the PACU, I attempted a closed reduction after IV Versed was administered. Reduction was unsuccessful. Patient was brought back to the operative suite. And a closed reduction and examination under anesthesia was performed. See procedure note to follow for full details.
--- NOTE | 2023-10-17 10:25 | RAD_ITS ---
STUDY: X-RAY - PELVIS AND RIGHT HIP REASON FOR EXAM: Male, 68 years old. POST OP TECHNIQUE: 1 views of the pelvis and hip. COMPARISON: None. FINDINGS: Cephalic subluxation of the prosthetic femoral component of the right total hip joint. RAD/HIP, UNI W/ Pelvis 2-3 Views IMPRESSION: Persistent cephalic subluxation of the prosthetic right hip joint. Electronically Signed: David Franklin MD at 12:36 EDT ,
--- NOTE | 2023-10-17 10:25 | RAD_ITS ---
STUDY: X-RAY - PELVIS REASON FOR EXAM: Male, 68 years old. POST OP[ TECHNIQUE: One view of the pelvis was obtained. COMPARISON: Comparison is made with prior examination earlier in the day at 10:14 AM. FINDINGS: The patient is status post right hip replacement. There is superior displacement of the femoral head with respect to the acetabular component. Overlying postoperative changes in the soft tissues. RAD/Pelvis 1 or 2 Views IMPRESSION: Persistent cephalic subluxation of the prosthetic right hip joint. Electronically Signed: David Franklin MD at 12:33 EDT ,
--- NOTE | 2023-10-17 10:48 | RAD_ITS ---
STUDY: X-RAY - PELVIS REASON FOR EXAM: Male, 68 years old. DISLOCATION TECHNIQUE: One view of the pelvis was obtained. COMPARISON: Comparison is made with prior study done earlier today. FINDINGS: Status post right total hip replacement with a cephalic subluxation of the femoral component of the prosthetic hip. Postoperative soft tissue changes. RAD/Pelvis 1 or 2 Views IMPRESSION: Persistent cephalic subluxation of the prosthetic right hip joint. Electronically Signed: David Franklin MD at 12:34 EDT ,
--- NOTE | 2023-10-17 10:48 | RAD_ITS ---
STUDY: X-RAY - PELVIS REASON FOR EXAM: Male, 68 years old. DISLOCATION TECHNIQUE: One view of the pelvis was obtained. COMPARISON: Comparison is made with prior study done earlier. FINDINGS: Stable appearance of the cephalic subluxation of the prosthetic right hip joint. RAD/Pelvis 1 or 2 Views IMPRESSION: Stable appearance of the cephalic subluxation of the prosthetic right hip joint. Electronically Signed: David Franklin MD at 12:36 EDT ,
--- NOTE | 2023-10-17 11:05 | RAD_ITS ---
STUDY: X-RAY - PELVIS AND RIGHT HIP REASON FOR EXAM: Male, 68 years old. DISLOCATION, REPOSITION CHECK #6 TECHNIQUE: 2 views of the pelvis and hip. COMPARISON: Comparison is made with prior study done earlier in the day. FINDINGS: Reduction of the prosthetic right hip subluxation. RAD/Hip Min 2 Views (Portable) IMPRESSION: Successful reduction of the prosthetic right hip subluxation. Electronically Signed: David Franklin MD at 12:37 EDT ,
--- NOTE | 2023-10-17 15:15 | RAD_ITS ---
STUDY: X-RAY - PELVIS AND RIGHT HIP REASON FOR EXAM: Male, 68 years old. Post Op -- AP both hips on single gwyn/lateral of op hip PACU TECHNIQUE: 2 views of the pelvis and hip. COMPARISON: Comparison is made with prior study done earlier today. FINDINGS: The right total hip replacement has been revised. Metallic wire is seen overlying the proximal portion of the femoral stem There is good alignment. RAD/Hip Min 2 Views (Portable) IMPRESSION: Status post revision of the total right hip replacement. There is good alignment. Metallic wire is seen overlying the proximal portion of the femoral stem. Electronically Signed: David Frankiln MD at 15:28 EDT ,
--- NOTE | 2023-10-17 18:04 | PCM.OPRPT ---
Report of Operation Date of Procedure: 10/17/23 Description of Surgical Findings:: Preoperative diagnosis: Right total hip arthroplasty anterior dislocation Postoperative diagnosis: Right total hip arthroplasty anterior instability Procedure: Closed reduction right hip with examination under anesthesia Surgeon: Ta He DO Anesthesia: MAC Anesthesiologist: Dr. Sanchez Estimated blood loss: None IV fluids: Per anesthesia record Specimen: None Packing/drains: None Implants: None Complications: None Intraoperative findings: Persistent anterior instability of the right hip. [place] affect seen with external rotation right hip with the patient in the supine position. Indications: Anterior hip dislocation diagnosed in PACU following right total hip arthroplasty. Procedure details: Due to anterior dislocation identified in PACU following right total hip arthroplasty, I recommended a closed reduction of the right hip. Despite sedation in the PACU, patient required deeper sedation and was brought to the OR. I did discuss the case with the patient's due to patient still coming out of anesthesia from his total hip replacement. Informed consent was obtained. He was brought to the operative suite. MAC anesthesia was induced on his hospital bed. After adequate anesthesia, we performed a timeout confirming the side, site, and operation be performed. No concerns were voiced elected proceed with the procedure. My pediatric physical therapy assistant held the pelvis stabilized on the bed while I externally rotated and extend the hip applied traction and then internally rotated the hip. A visible and palpable clunk was appreciated. X-rays revealed a successful reduction of the right hip. Examination of the right hip revealed significant anterior instability with gentle external rotation of the right hip. We ensured the hip was reduced and placed the patient in an abduction pillow. He was awoken from anesthesia and transferred to PACU in stable condition. I discussed the case with the patient's . I recommended due to the persistent instability of the right hip that we return to the operating room today for revision of the right total hip arthroplasty. I suspected a left renal fact of a posterior bone spur causing inherent instability of the right hip. I explained that nonsurgical treatment of the anterior instability would likely fail and we elected to proceed with a revision right total hip arthroplasty today. See procedure note to follow for full details.
--- NOTE | 2023-10-17 18:09 | OP.PCM_ITS ---
Report of Operation Date of Procedure: 10/17/23 Description of Surgical Findings:: Preoperative diagnosis: Right total hip arthroplasty anterior instability Postoperative diagnosis: Right total hip arthroplasty anterior instability Procedure: Revision right total hip arthroplasty of femoral and acetabular yue galvandevyn Surgeon: Ta He DO Entry Level Receptionist: Fahad Prasad PA-C Estimated blood loss: 200 cc IV fluids: 1 L crystalloid Specimen: None Complications: Calcar fracture identified intraoperatively treated successfully with cerclage wire Implants: Gomez Accolade two 127 degree neck angle hip stem size #7, Trident II TriTanium cluster hole acetabular shell 56 mm outer diameter with 46F MDM cobalt chrome liner, 42 mm outer diameter polyethylene insert inner diameter 28 mm, 28 mm femoral head 6.5 mm low-profile hex screw 6.5 mm x 2 2.0 mm Ora-Miles cable Indications: Patient underwent right total hip arthroplasty 10/17/2023. X-rays in PACU revealed an anterior instability of the right hip. Closed reduction was attempted in the PACU and ultimately he underwent closed reduction under MAC anesthesia in the operating room shortly after surgery. Inherent instability of the right hip was noted with only limited external rotation. No instability did not appear to be amenable to nonsurgical treatment. I recommended return to the OR for revision right total hip arthroplasty. I suspected that the patient had femoral ischial impingement and/or a cam lever effect of a posterior osteophyte causing the anterior instability which was quite unusual with a posterior approach to the hip. Nevertheless, a obtained informed sent for both the patient and the patient's as he was coming off anesthesia still. We agreed with the plan and they were amenable to return to the operating room today. I reviewed the risks, benefits and alternatives to procedure. Informed consent was obtained. Risks included but were not limited to bleeding, infection, loss of life or limb, need for additional surgery, persistent instability, neurovascular injury, DVT or PE, fracture, nonhealing wounds. Patient expressed understanding and wished to proceed with surgery. Description of procedure: Patient was brought to the operative suite. General anesthesia was induced on his hospital bed. Endotracheal tube was placed and secured. He was then positioned on a standard operating room table. He was placed in a lateral decubitus position. All bony prominences were well-padded. We prepped and draped the right hip in a normal, sterile orthopedic fashion. We performed a timeout confirming the side, site, operation be performed. No concerns voiced and we elected to proceed with surgery. An additional 1 g Ancef was administered prior to incision by anesthesia staff. I then reopened the previous posterior lateral approach to the hip. Sutures removed. Superficial layer was irrigated. IT band was opened. Trauma retractor was placed. Posterior capsular repair was intact and sutures were cut. The hip was surprisingly still reduced despite manipulation for prepping and draping. In fact, no anterior or posterior instability was evident following capsulotomy. I suspect at this time that the anterior instability was exacerbated with the patient in the supine position and he was inherently stable in a lateral decubitus position which would correlate with his stable exam following his index procedure intraoperatively. I then used a bone hook to dislocate the hip. I attempted to remove the femoral head with a rim impactor but the impaction caused the femoral stem to dislodge due to no any bony ingrowth at this point. We elected to proceed with revision of femoral component. I then turned my attention to the acetabulum. The polyethylene insert was removed with an osteotome. Hexhead screw was removed. There was an overhanging osteophyte noted in the posterior inferior aspect of the acetabulum that certainly may have been involved with the anterior instability with a laboring effect.acetabular shell was then removed. I debrided the acetabulum by reinserting the 56 mm reamer and deep in the socket ever so slightly to allow for fresh bleeding bone. There was still excellent rim fit. I selected a new 56 mm acetabular shell with that was impacted in standard fashion adding abduction to the previous component alignment and slight retroversion in comparison to the prior shell. This was impacted in standard fashion. Any overhanging bone was then removed with a combination of osteotome and rongeur. 2 screws were placed for additional stability in standard fashion and the superior and superior anterior holes of the shell. Due to denies instability elected proceed with a dual mobility liner. Trial liner was placed. Then then turned my attention to the femur. Femur was elevated. I suspect during the extraction process, calcar fracture wa s sustained. I replaced the 7 mm broach. A single cerclage cable was placed around the calcar and tensioned and cut. The size 7 stem was inherently stable. I trialed a high offset stem for increased stability. Trial reduction was performed. There is excellent stability in all planes of motion. Hyperextension external rotation of the hip did not yield any anterior instability. There is no obvious impingement noted. All range of motion's were scrutinized and appeared inherently stable. Eyebrow neck was used to dislocate the trials. I selected a 127 degree high offset #7 femoral stem. Broach was removed and this was impacted in standard fashion. The fracture was stable following placement of the stem. The MDM liner was impacted. The dual mobility head then assembled on the back table per varnisher recommendations and impacted over a clean dry Hayes taper of the femoral stem. Final reduction was performed. Irrisept was used to copiously irrigate the wound for 1 minute and then copiously irrigated with normal saline solution. Posterior capsular repair was performed in standard fashion with #5 Ethibond via bone tunnels. IT band was closed watertight with a #1 strata fix. 0 Vicryl suture was used to reapproximate the subcutaneous fascia. Dermis was reapproximated buried 2-0 Vicryl suture and the skin finally closed with vinod. A silver Mepilex dressing was then applied to the wound. Patient tolerated the procedure well. He was awakened from anesthesia without difficulty. Need for skilled assistant associate professor: Fahad Prasad PA-C was critical to the outcome of the c ase. During the course of the procedure the physician assistant associate professor played a vital role. His intimate knowledge of my steps in the procedure aided in safe and expedient completion of the procedure. The PA played a vital role in positioning particularly in obtaining the appropriate positioning. The PA was also vital in the retraction of soft tissues during the exposure and protecting vital structures. The PA was also vital and obtaining joint reduction and assisting with hardware placement. He also played a vital role in closure and splint application with my direct supervision. Postoperative plan: Patient be placed in observation overnight. He may begin weightbearing as tolerated to the right hip. He will be placed on a walker. I recommended posterior hip precautions. Outpatient therapy to start next week. Aspirin and Eliquis to restart tomorrow. Oxycodone Tylenol ordered for pain. Maintain surgical dressing x 5 days then okay to remove.
[2023-10-17] MEDS: Senna/Docusate Sodium 1 Tablet 2 TABLET PO (21:38)
[2023-10-17] MEDS: Metoprolol Tartrate 100 MG Tablet PO (21:39)
[2023-10-18] MEDS: oxyCODONE 5 MG Tablet PO ×2 (00:34→10:13)
[2023-10-18 01:20] VITALS: BP 117/62; PULSE 64; RESP 16; TEMP 36.7; O2SAT 99
[2023-10-18 05:19] VITALS: BP 115/65; PULSE 70; RESP 18; TEMP 36.7; O2SAT 99
[2023-10-18] MEDS: Acetaminophen 500 MG Tablet 1000 MG PO ×2 (05:50→14:08)
--- NOTE | 2023-10-18 06:18 | PCM.PN.ORT ---
Subjective Subjective Patient seen and examined. Patient reports some soreness but is controlled with oral Tylenol. He denies fevers, chills, nausea vomiting, chest pain or shortness of breath. Urinating without difficulty. Up to the bathroom with nursing assistance. Objective Data Objective Data Vital Signs: Vital Signs Temp Pulse Resp BP Pulse Ox O2 Del Method O2 Flow Rate 98.1 F 70 18 115/65 99 Room Air 4 10/18/23 05:19 10/18/23 05:19 10/18/23 05:19 10/18/23 05:19 10/18/23 05:19 10/18/23 05:19 10/17/23 16:15 Oxygen Flow Rate (L/min) 4 Oxygen Delivery Method Room Air Weight: 168 lb 13.985 oz Body Mass Index (BMI) 22.8 Intake & Output: Intake and Output for Last 24 Hours 10/16/23 10/17/23 10/18/23 23:59 23:59 23:59 Intake Total 1212 / 1212 Output Total 900 / 900 500 / 500 Balance 312 / 312 -500 / -500 Lab / Micro Data 10/02/23 07:38 10/02/23 07:38 Labs: Laboratory Results - last 24 hr 10/17/23 06:02: POC Glucose 99 Micro: Microbiology 10/02/23 07:38 Swab (Method) Nasal Screen MRSA/MSSA - Final Radiography Diagnostic Testing: Radiology Impression Hip X-Ray 10/17/23 09:28 IMPRESSION: Stable cephalic subluxation of the prosthetic right hip joint. Electronically Signed: David Franklin MD at 12:35 EDT , Hip/Pelvis X-Ray 10/17/23 10:25 IMPRESSION: Persistent cephalic subluxation of the prosthetic right hip joint. Electronically Signed: David Franklin MD at 12:36 EDT , Pelvis X-Ray 10/17/23 10:25 IMPRESSION: Persistent cephalic subluxation of the prosthetic right hip joint. Electronically Signed: David Franklin MD at 12:33 EDT , Pelvis X-Ray 10/17/23 10:48 IMPRESSION: Stable appearance of the cephalic subluxation of the prosthetic right hip joint. Electronically Signed: David Franklin MD at 12:36 EDT , Pelvis X-Ray 10/17/23 10:48 IMPRESSION: Persistent cephalic subluxation of the prosthetic right hip joint. Electronically Signed: David Franklin MD at 12:34 EDT , Hip X-Ray 10/17/23 11:05 IMPRESSION: Successful reduction of the prosthetic right hip subluxation. Electronically Signed: David Franklin MD at 12:37 EDT , Hip X-Ray 10/17/23 15:15 IMPRESSION: Status post revision of the total right hip replacement. There is good alignment. Metallic wire is seen overlying the proximal portion of the femoral stem. Electronically Signed: David Franklin MD at 15:28 EDT , Physical Exam Narrative General - A&Ox3, NAD. VSS/AF Right lower extremity -incisional dressing C/D/I. SILT Sural, Saphenous, SPN, DPN, Tibial N. distributions. DP, PT 2+. BCR. DF, PF, EHL /. No calf TTP. Assessment & Plan Assessment/Plan (1) S/P total right hip arthroplasty: PLAN: POD#1 s/p right total hip arthroplasty, revision right total hip arthroplasty - Pain control - PT/OT -weightbearing as tolerated right lower extremity, posterior precautions - DVT PPX -Eliquis, aspirin, SCDs, GARRISON carmona - Case management - D/C planning Anticipate discharge home today.
[2023-10-18 07:13] LABS: Hematocrit 26.4 % (40-54); Hemoglobin 8.6 g/dL (13.0-16.5); Mean Corp Hgb Conc 32.6 g/dL (32-36); Mean Corpuscular Volume 98.1 fL (80-94); Mean Platelet Vol. 11.3 fl (6.2-12.0); Platelet Count 161 K/mm3 (150-450); RBC Distribution Width CV 12.4 % (11.6-14.6); RBC Distribution Width SD 44.6 fl (35.1-43.9); Red Blood Count 2.69 M/mm3 (4.6-6.2); White Blood Count 7.5 K/mm3 (4.4-11.0)
[2023-10-18 08:12] VITALS: BP 117/63; PULSE 56; RESP 16; TEMP 36.4; O2SAT 97
[2023-10-18 08:16] VITALS: BP 117/63; PULSE 56; RESP 16; TEMP 36.4; O2SAT 97
[2023-10-18 08:21] LABS: Anion Gap 12 (5-15); BUN 19 mg/dL (7-18); BUN/Creat Ratio 16.8 RATIO (10-20); Calcium,Total 8.2 mg/dL (8.5-10.1); Chloride 100 mmol/L (98-107); Creatinine, Serum 1.13 mg/dL (0.70-1.30); EST Glomerular Filtration Rate 69 mL/min (>60); Est Glom Filt Rate - Afr Amer 83 mL/min (>60); Estimated Creatinine Clearance 68.73 ml/min; Glucose 126 mg/dL (74-106); Potassium 4.2 mmol/L (3.5-5.1); Sodium Level 133 mmol/L (136-145)
[2023-10-18 08:26] VITALS: PULSE 62
[2023-10-18] MEDS: Metoprolol Tartrate 100 MG Tablet PO (08:26)
[2023-10-18] MEDS: Senna/Docusate Sodium 1 Tablet 2 TABLET PO (08:26)
[2023-10-18] MEDS: amLODIPine 5 MG Tablet PO (08:27)
[2023-10-18] MEDS: Losartan Potassium 50 MG Tablet PO (08:27)
[2023-10-18] MEDS: Aspirin E.C. 81 MG Tablet PO (08:27)
[2023-10-18] MEDS: APIXABAN 5 MG TABLET PO (08:28)
--- NOTE | 2023-10-18 09:45 | CASEMGMT ---
RN CM Face to Face with patient for initial transition planning/care coordination assessment. RN CM introduced self and role at [facility]. Patient lying in bed, alert and oriented. Patient willing to participate in assessment and is able to answer all questions appropriately. Care providers, pharmacy, and demographics verified. PCP: [facility] Specialists: scot He; Armando, bowling ball grader and marker; Preferred Pharmacy: [facility] Insurance: [facility] Prescription Benefit: yes Living Will/HPOA: yes, son Maged Palm LNOK: , son Living Arrangements: Patient lives with in a 2 story home with access for bed and bath on first floor. Patient has 3 steps to enter the home. Patient states he is independent at home. Transportation: self, DME/HHC: Patient states he has raised toilet, shower chair, cane, walker, and grab bars at home. No previous HHC or SNF. Patient has outpatient therpay scheduled for Saturday at [facility]. Patient wishes to discharge home with outpatient therapy. Patient states he has no further needs or concerns at this time. CM to follow for discharge planning needs that may arise. Disposition Plan: Patient to discharge home with outpatient therapy, family support, and follow-up plans in place. Tara NGO, RN, CM
--- NOTE | 2023-10-18 12:31 | DCINST_ITS ---
Discharge Instructions Diet Discharge Diet: No restrictions Activity Discharge Activity: May Not Drive, May Shower and Use Walker May shower in (days): 3 May resume sexual activity in: No Restrictions Ice area for (Minutes): 30 Weight Bearing Status: Weight bearing as tolerated Dressing / Incision Call your doctor if your incision/area has: Continuous Slow Oozing, Sudden Increased Bleeding, Increased Pain/ Swelling, Increased Redness, Foul Smelling Discharge and Swelling at the incision site Call your doctor if you observe: Fever of 101 or Higher Change Dressing in: leave in place till F/U Remove Dressing in: leave in place till F/U Follow Up Care Please Follow Up With: Jason Prasad PA-C Test Results: Test results from this visit will be discussed in further detail at your follow- up appointment, if applicable. Discharge Plan Admission Admit Date/Time: 10/17/23 15:05 Primary Reason for Your Visit: Right total hip replacement Attending Provider: Ta He Primary Care Provider: Fiona Lemon Discharge Orders/Prescriptions Prescriptions: New acetaminophen 500 mg Tablet 1,000 mg PO Q8 30 Days Qty: 180 0RF doxycycline hyclate 100 mg tablet 100 mg PO BID 7 Days Qty: 14 0RF Continued aspirin 81 mg tablet,delayed release (DR/EC) 81 mg PO DAILY losartan 50 mg tablet 50 mg PO DAILY Qty: 90 3RF amlodipine 5 mg tablet 5 mg PO DAILY Qty: 30 11RF apixaban 5 mg tablet 5 mg PO BID Qty: 60 11RF metoprolol tartrate [Lopressor] 100 mg tablet 100 mg PO BID Qty: 180 4RF Other Ambulatory Orders: 12 Lead EKG (Routine) Timeframe: [id number] Location: None Selected Ordered By: Dr. Ephraim Trivedi Referrals / Follow Up: Fiona Lemon MD [Primary Care Provider] - Disposition Disposition (needs filled in before D/C Order can be placed): Home, Self Care
[2023-10-18 13:40] VITALS: BP 112/65; PULSE 65; RESP 16; TEMP 36.6; O2SAT 95
--- NOTE | 2023-10-18 15:14 | PHA.DC.MC.R ---
Pharmacy [facility] has performed discharge medication reconciliation and counseling for this patient. The patient's discharge medication list was reviewed for discrepancies and discrepancies were resolved. The patient was counseled on the following discharge medications and changes in medications for homegoing were reviewed. 1. TYLENOL 2. DOXYCYCLINE The Reason for Use, instructions for use, and potential side effects were reviewed for all new medications. The patient's questions regarding all of their medications were answered. The patient was able to verbally demonstrate an understanding of their discharge medications. The patient was counselled by Ayala Astudillo PharmD Candidate Medications at Discharge Home Medications aspirin 81 mg tablet,delayed release 81 mg PO DAILY 08/23/22 losartan 50 mg tablet 50 mg PO DAILY This is a dose increase #90 tabs 07/11/23 amlodipine 5 mg tablet 5 mg PO DAILY #30 tabs 07/22/23 apixaban 5 mg tablet 5 mg PO BID #60 tabs 07/30/23 metoprolol tartrate 100 mg tablet (Lopressor) 100 mg PO BID #180 tabs 09/06/23 acetaminophen 500 mg tablet 1,000 mg (2 x 500 mg) PO Q8 30 days #180 tabs 10/18/23 doxycycline hyclate 100 mg tablet 100 mg PO BID 7 days #14 tabs 10/18/23
== END 2023-10-18 14:11 | disposition home or self-care (01) ==
LOC: SDC 16:11 → MS3 16:11
PROVIDERS: Anesthesiology; Admitting Provider Student in an Organized Health Care Education/Training Program; PCP Internal Medicine; Referring Provider Student in an Organized Health Care Education/Training Program; Visit Provider Student in an Organized Health Care Education/Training Program
PROC: 0SR90JZ Replacement of Right Hip Joint with Synthetic Substitute, Open Approach (ICD-10-PCS; CPT 27130; principal; 2023-10-17 07:05)
PROC: (CPT 27570; principal; 2023-10-17 12:50)
DX: M16.11 Unilateral primary osteoarthritis, right hip (principal); I48.0 Paroxysmal atrial fibrillation; T84.020A Dislocation of internal right hip prosthesis, initial encounter; M25.351 Other instability, right hip; Y79.2 Prosthetic and other implants, materials and accessory orthopedic devices associated with adverse incidents; Y92.239 Unspecified place in hospital as the place of occurrence of the external cause; I10 Essential (primary) hypertension; I25.10 Atherosclerotic heart disease of native coronary artery without angina pectoris; E78.00 Pure hypercholesterolemia, unspecified; Z79.899 Other long term (current) drug therapy; Z79.01 Long term (current) use of anticoagulants; Z79.82 Long term (current) use of aspirin
CPT/HCPCS: 27130; 01214; 27266; 01200; 01215; 27134; 36415; 72170; 73502; 80048; 82040; 82962; 83735; 85025; 85027; 87081; 88305; 88311; 93005; 94668; 97162; 97166; 99221; C1776; J7120; G0378; J2310; J2405; J3475

== ENCOUNTER → 2024-03-19 | Outpatient (CLI) | payer MEDICARE, SELFPAY ==
[2024-03-19 11:03] LABS: AST(SGOT) 32 U/L (15-37); Alanine Aminotransfer ALT/SGPT 38 U/L (16-61); Albumin, Serum 3.7 g/dL (3.2-5.0); Alkaline Phosphatase 69 U/L (45-117); Cholesterol 186 mg/dL (200); Globulin 3.9 g/dL (2.2-4.2); High Density Lipoprotein 86 mg/dL; Protein, Total 7.6 g/dL (6.4-8.2); Triglycerides 45 mg/dL; Very Low Density Lipoprotein 9 mg/dL (5-40)
== END | disposition home or self-care (01) ==
LOC: LAB 09:31
PROVIDERS: PCP Family Medicine; Referring Provider Nurse Practitioner Gerontology; Visit Provider Nurse Practitioner Gerontology
DX: E78.5 Hyperlipidemia, unspecified (principal)
CPT/HCPCS: 36415; 80061; 80076

== ENCOUNTER → 2024-12-16 | Outpatient (CLI) | payer MEDICARE, SELFPAY ==
[2024-12-16 10:41] LABS: AST(SGOT) 42 U/L (<=37); Alanine Aminotransfer ALT/SGPT 36 U/L (<=46); Albumin, Serum 4.3 g/dL (3.4-4.8); Alkaline Phosphatase 64 U/L (40-129); Bilirubin, Direct 0.39 mg/dL (0.00-0.30); Cholesterol 176 mg/dL (<=200); Globulin 3.2 g/dL (2.2-4.2); Low Density Lipoprotein Calc. 77 mg/dL; Triglycerides 33 mg/dL; Very Low Density Lipoprotein 7 mg/dL (5-40); cholesterol:hdl ratio screen 1.90
== END | disposition home or self-care (01) ==
LOC: LAB 09:45
PROVIDERS: PCP Family Medicine; Referring Provider Nurse Practitioner Family; Visit Provider Nurse Practitioner Family
DX: E78.5 Hyperlipidemia, unspecified (principal); Z95.5 Presence of coronary angioplasty implant and graft
CPT/HCPCS: 36415; 80061; 80076

== ENCOUNTER → 2024-12-22 | Outpatient (CLI) | payer MEDICARE, SELFPAY ==
--- NOTE | 2024-12-22 10:41 | CDU_ITS ---
Reason For Study Reason For Study: Dizziness Rt. Velocities/BP Lt. Velocities/BP Prox CCA 98.6/16.3 cm/sec. Prox CCA 121.9/22.5 cm/sec. Mid CCA 102.3/20 cm/sec. Mid CCA 75.3/16.3 cm/sec. Dist CCA 69.1/15.1 cm/sec. Dist CCA 54.4/12.6 cm/sec. Prox ICA 43.7/12.6 cm/sec. Prox ICA 70.4/24.9 cm/sec. Mid ICA 59.8/21.1 cm/sec. Mid ICA 99.2/22.5 cm/sec. Dist ICA 65.5/23 cm/sec. Dist ICA 78.4/20.1 cm/sec. Rt. ICA/CCA = 0.64. Lt. ICA/CCA = 1.32. Prox ECA 51.3/6 cm/sec. Prox ECA 50.7/5.3 cm/sec. Rt. Vert. 51.5/11.6 cm/sec. Lt. Vert. 50.9/15.7 cm/sec. Right Extracranial There is homogeneous, smooth atherosclerotic plaque noted in the right common carotid artery. There is heterogeneous, irregular atherosclerotic plaque noted in the right internal carotid artery. There is intimal thickening but no significant atherosclerotic plaque noted in the right external carotid artery. Antegrade flow is noted in the right vertebral artery. Left Extracranial There is homogeneous, smooth atherosclerotic plaque noted in the left common carotid artery. There is heterogeneous, irregular atherosclerotic plaque noted in the left internal carotid artery. There is intimal thickening but no significant atherosclerotic plaque noted in the left external carotid artery. Antegrade flow is noted in the left vertebral artery. Procedure Carotid Duplex 86133. This is a Carotid Duplex examination using B-mode, color flow and specral Doppler. Exam performed in department. VL/Carotid Duplex Ultrasound Interpretation Summary Mild (<50%) stenosis right extracranial internal carotid. Mild (<50%) stenosis left extracranial internal carotid. Patent and antegrade vertebrals bilaterally. Ordering Physician: Lavell Drummond Referring Physician: Gaetano Jose MD Performed By: Tara Navarrete RVT
== END | disposition home or self-care (01) ==
PROVIDERS: PCP Family Medicine; Referring Provider Nurse Practitioner Family; Visit Provider Nurse Practitioner Family
DX: I48.0 Paroxysmal atrial fibrillation (principal); I25.110 Atherosclerotic heart disease of native coronary artery with unstable angina pectoris; I65.22 Occlusion and stenosis of left carotid artery
CPT/HCPCS: 93225; 93226; 93880

== ENCOUNTER → 2025-02-18 | Outpatient (CLI) | payer MEDICARE, SELFPAY ==
[2025-02-18 11:22] LABS: Hematocrit 40.5 % (40-54); Hemoglobin 13.7 g/dL (13.0-16.5); Immature Granulocytes Count 0.030 X10^3/uL (0.0-0.0); Mean Corp Hgb Conc 33.8 g/dL (32-36); Mean Corpuscular Volume 94.8 fL (80-94); Mean Platelet Vol. 10.7 fl (6.2-12.0); NRBC Flagged by Analyzer 0 % (0-5); Platelet Count 184 K/mm3 (150-450); RBC Distribution Width CV 12.5 % (11.6-14.6); RBC Distribution Width SD 43.6 fl (35.1-43.9); Red Blood Count 4.27 M/mm3 (4.6-6.2); White Blood Count 5.0 K/mm3 (4.4-11.0)
[2025-02-18 11:57] LABS: CRP 4.99 mg/L (0.0-3.0)
[2025-02-18 13:06] LABS: AST(SGOT) 29 U/L (<=37); Alanine Aminotransfer ALT/SGPT 27 U/L (<=46); Albumin, Serum 4.3 g/dL (3.4-4.8); Alkaline Phosphatase 74 U/L (40-129); Bilirubin, Direct 0.48 mg/dL (0.00-0.30); Cholesterol 180 mg/dL (<=200); Globulin 3.5 g/dL (2.2-4.2); Low Density Lipoprotein Calc. 80 mg/dL; Triglycerides 36 mg/dL; Very Low Density Lipoprotein 7 mg/dL (5-40); cholesterol:hdl ratio screen 1.95
== END | disposition home or self-care (01) ==
LOC: LAB 10:16
PROVIDERS: Nurse Practitioner Family; PCP Family Medicine; Referring Provider Student in an Organized Health Care Education/Training Program; Visit Provider Student in an Organized Health Care Education/Training Program
DX: T84.84XA Pain due to internal orthopedic prosthetic devices, implants and grafts, initial encounter (principal); E78.00 Pure hypercholesterolemia, unspecified
CPT/HCPCS: 36415; 80061; 80076; 85025; 85652; 86140